=== PATIENT | male | born 1965 ===

== ENCOUNTER 2023-07-14 05:58 | Day surgery (SDC) | payer OTHER ==
[~2023-07-14 05:58] MED LIST: ATORVASTATIN CA40 MG PO; PANTOPRAZOLE SO40 M2 PO; PLAVIX75 MG PO; TOPROL XL25 M1 PO; ZESTRIL10 M1 PO
[2023-07-14] MEDS ORDERED: OXYC1TAB9 PO (11:14)
== END 2023-07-14 14:45 | disposition home or self-care (01) ==
LOC: CIR.AMB 05:58
PROVIDERS: ATTEND Surgery
DX: K60.3 Anal fistula (principal); K62.89 Other specified diseases of anus and rectum; K62.5 Hemorrhage of anus and rectum; Z20.822 Contact with and (suspected) exposure to COVID-19; I10 Essential (primary) hypertension